=== PATIENT | female | born 1945 | race Caucasian/White ===

== ENCOUNTER 2018-03-19 00:06 | Emergency (ER) | payer MEDICARE, BC ==
[~2018-03-19] VITALS: Ht 153.7 cm; Wt 73.0 kg
[~2018-03-19 00:06] MED LIST: ADVA115A; BETA0.054; DONE10TA7; FLUO10CA4; HYDR25TA5; LISI-515; MELO15TA20; MEMA1TAB; MEMA1TAB2; OMEP40CA2; PRAM1TAB; PRAV20TA2; PRIM50TA5
[2018-03-19 00:10] VITALS: PULSE 67; RESP 16; TEMP 98.6; O2SAT 95
[2018-03-19] MEDS ORDERED: ACETAMINOPHEN 325 MG TAB PO ONE (00:30)
--- NOTE | 2018-03-19 00:37 | PD ---
HPI Chief Complaint: Fall Time Seen by Provider: 00:24 Travel History International Travel<30 days: No Contact w/Intl Traveler<30days: No Traveled to known affect area: No History of Present Illness HPI The patient is a 72-year-old female who presents to the emergency department for a head injury and knee injury after falling out of bed. The patient fell out of bed which is approximately 3 feet off the ground according to the . The patient landed on a tile floor. The patient was noted to have a large hematoma to the right occipital area as well as bruising of the anterior aspect of the right knee. The patient was able to ambulate on the right leg, but does complain of tenderness just inferior to the knee where the bruise is located. The patient denies taking any anticoagulants or blood thinners including aspirin, warfarin, Coumadin, Eliquis, Xarelto, and Pradaxa. The patient denies any neck pain, difficulty with vision, chest pain, shortness breath, nausea, vomiting, or abdominal pain. Symptoms are moderate. The patient does have a history of Parkinson's disease according to the . PFSH Past Medical History Asthma: Yes Depression: Yes Cancer: No Cardiovascular Problems: No High Cholesterol: Yes Diabetes: No Diminished Hearing: No Endocrine: No Gastrointestinal Disorders: Yes (GERD, HIATAL HERNIA) Genitourinary: No Hepatitis: No Hiatal Hernia: Yes Hypertension: Yes Immune Disorder: No Musculoskeletal: Yes (NECK/ BACK DISC ISSUES) Neurologic: Yes (VERTIGO, EXCESSIVE SPINAL FLUID; DIFFICULTY FINDING WORDS) Psychiatric: Yes (MEMORY PROBLEMS; DIFFICULTY FIND WORDS ) Respiratory: Yes (COPD, ASTHMA, SLEEP APNEA USES CPAP) Thyroid Disease: No ?: Not : 4 Para: 3 Miscarriage: 1 Past Surgical History Abdominal Surgery: Yes (LAP. ELENA) AICD: No Body Medical Devices: NONE Cardiac Surgery: No Ear Surgery: No Endocrine Surgery: No Eye Surgery: Yes (ADY CATARACTS REM'D) Genitourinary Surgery: No Gynecologic Surgery: Yes (HYSTERECTOMY) Hysterectomy: Yes Joint Replacement: No Oral Surgery: No Pacemaker: No Thoracic Surgery: No Other Surgery: Yes Social History Alcohol Use: No (DENIES) Tobacco Use: No (QUIT 1993) Substance Use: No Allergies-Medications (Allergen,Severity, Reaction): Coded Allergies: No Known Allergies (Unverified , 03/19/18) Reported Meds & Prescriptions Reported Meds & Active Scripts Active Reported Multi-Vitamin Daily (Multivitamin) 1 Each Tablet 1 Tab PO DAILY Omeprazole 40 Mg Cap 40 Mg DAILY Memantine 10 Mg Tab 10 Mg PO DAILY Lisinopril 20 Mg Tab 20 Mg PO DAILY Hydrochlorothiazide 25 Mg Tab 25 Mg PO DAILY Fluoxetine (Pmdd) 10 Mg Cap 10 Mg PO DAILY Donepezil 10 Mg Tab 10 Mg PO HS Review of Systems Except as stated in HPI: all other systems reviewed are Neg Eyes: No: Blurred Vision, Visual changes HENT: Positive: Headaches, No: Neck Pain Cardiovascular: No: Chest Pain or Discomfort Respiratory: No: Shortness of Breath Gastrointestinal: No: Nausea, Vomiting, Abdominal Pain Musculoskeletal: Positive: Edema, Pain Neurologic: Positive: Headache, No: Focal Abnormalities, Change in Mentation Physical Exam Narrative GENERAL: Awake, alert, pleasant 72-year-old female who appears her stated age and is in no acute respiratory distress. SKIN: Focused skin assessment warm/dry. HEAD: Hematoma noted to the right occipital area. No visible abrasion, laceration, or bleeding. EYES: Pupils equal and round. 3 mm bilateral and reactive. Drainage. ENT: No nasal bleeding or discharge. Mucous membranes pink and moist. NECK: Trachea midline. No JVD. No tenderness of the cervical vertebrae. CARDIOVASCULAR: Regular rate and rhythm. No murmur appreciated. RESPIRATORY: No accessory muscle use. Clear to auscultation. Breath sounds equal bilaterally. GASTROINTESTINAL: Abdomen soft, non-tender, nondistended. Back: No tenderness over the thoracic or lumbar vertebrae. Resting tremor right hand. MUSCULOSKELETAL: Ecchymosis noted just inferior to the right patella with mild tenderness. The patient is able to fully flex the hip, knee, and ankle on the right side. Positive distal pulses. NEUROLOGICAL: Awake and alert. No obvious cranial nerve deficits. Motor grossly within normal limits. Normal speech. PSYCHIATRIC: Appropriate mood and affect; insight and judgment normal. Data Data Last Documented VS Vital Signs Date Time Temp Pulse Resp B/P (MAP) Pulse Ox O2 Delivery O2 Flow Rate FiO2 03/19/18 00:10 98.6 [address] Brain W/O Iv Contrast(Rout) (03/19/18 ) Knee, Complete (4vws) (03/19/18 ) Acetaminophen (Tylenol) (03/19/18 00:30) MDM Medical Decision Making Medical Screen Exam Complete: Yes Emergency Medical Condition: Yes Medical Record Reviewed: Yes Interpretation(s) CT of the brain reveals no acute hemorrhage or mass-effect. Soft tissue swelling over the right parietal bone with no evidence of fracture. Ventricular shunt catheter in place with the tip in the third ventricle. X-ray of the right knee reveals negative trauma CT Differential Diagnosis Differential diagnosis includes closed head injury, skull fracture, intracranial hemorrhage, subdural hemorrhage, subarachnoid hemorrhage, tibial plateau fracture, knee contusion, fracture, dislocation. Narrative Course CT of the brain was obtained. X-ray of the right knee was obtained. The patient was administered Tylenol 650 mg orally for pain. CT of the brain reveals soft tissue swelling but no intracranial hemorrhage. METHODS TIME ANALYST shunt is in place. X-ray of the right knee is unremarkable. The patient be discharged home , is advised to apply ice to the hematoma on the head as well as the right knee. She will be provided a copy of her radiology results at discharge. She is advised to follow-up with her primary physician. Diagnosis Primary Impression: Closed head injury Qualified Codes: S09.90XA - Unspecified injury of head, initial encounter Additional Impressions: Hematoma Contusion of right knee Qualified Codes: S80.01XA - Contusion of right knee, initial encounter Patient Instructions: General Instructions Additional Instructions: Tylenol and/or ibuprofen as needed for pain. Please provide the patient a copy of her CT results and x-ray results at discharge. Follow-up with your primary physician. Apply ice to the right knee and right parietal hematoma. Med/Other Pt SpecificInfo: No Change to Meds Disposition: 01 DISCHARGE HOME Condition: Stable Oscar Victoria MD March 19, 2018 00:37
[2018-03-19] MEDS ORDERED: MEMA1TAB2 PO (00:57)
[2018-03-19] MEDS ORDERED: FLUO10CA4 PO (00:57)
[2018-03-19] MEDS ORDERED: HYDR25TA5 PO (00:57)
[2018-03-19] MEDS ORDERED: OMEP40CA2 (00:57)
[2018-03-19] MEDS ORDERED: LISI-515 PO (00:57)
[2018-03-19] MEDS ORDERED: DONE10TA7 PO (00:57)
[2018-03-19] MEDS ORDERED: MULT1TAB46 PO (00:59)
--- NOTE | 2018-03-19 01:28 | RADRPT ---
EXAM DATE: 03/19/2018 1:19 AM EDT AGE/SEX: 72 years / Female INDICATIONS: Right knee pain after fall out of bed. CLINICAL DATA: This is the patient's initial encounter. Patient reports that signs and symptoms have been present for 1 day and indicates a pain score of 5/10. MEDICAL/SURGICAL HISTORY: . Parkinsons. None. COMPARISON: No prior [facility] exams available for comparison. FINDINGS: Multiple views of the right knee were obtained and demonstrate no acute fracture or malalignment. The re are mild degenerative changes with sclerosis and slight spurring in the patellofemoral joint. Ther e is mild osteopenia. The soft tissues are unremarkable. Joints are intact without dislocation or si gnificant arthropathy. Osseous density is normal. Soft tissues are unremarkable. No radiopaque for eign bodies seen. CONCLUSION: Negative trauma study. Electronically signed by: Gilbert Pope MD 03/19/2018 1:27 AM EDT
--- NOTE | 2018-03-19 01:40 | RADRPT ---
EXAM DATE: 03/19/2018 1:31 AM EDT AGE/SEX: 72 years / Female INDICATIONS: Trauma. Fall. CLINICAL DATA: This is the patient's initial encounter. Patient reports that signs and symptoms have been present for 1 day and indicates a pain score of 8/10. MEDICAL/SURGICAL HISTORY: . Parkinson's. Dementia. . Cranial shunt. RADIATION DOSE: 56.03 CTDI (mGy) COMPARISON: No prior [facility] exams available for comparison. TECHNIQUE: CT of the head without contrast. Using automated exposure control and adjustment of the mA and/or kV according to patient size, radiation dose was kept as low as reasonably achievable to ob tain optimal diagnostic quality images. FINDINGS: Cerebrum: A ventricular peritoneal shunt catheter is present via a right frontal approach. Tip is in the region of the third ventricle. There is mild to moderate atrophic change with sulcal and ventric ular prominence. Mild. Ventricular white matter lucencies are noted characteristic of chronic small v essel ischemic change. No evidence of midline shift, mass lesion, hemorrhage or acute infarction. No extraaxial fluid collections are seen. Posterior Fossa: The cerebellum and brainstem are intact. The 4th ventricle is midline. The cerebe llopontine angle is unremarkable. Extracranial: The visualized portion of the orbits is intact. Skull: The calvaria is intact. No evidence of skull fracture. There is soft tissue swelling over th e right parietal bone. CONCLUSION: 1. No acute hemorrhage or mass effect. 2. Soft tissue swelling over the right parietal bone with no evidence of fracture. 3. Ventricular shunt catheter in place with the tip in the third ventricle. Electronically signed by: Gilbert Pope MD 03/19/2018 1:38 AM EDT
[2018-03-19 01:59] VITALS: BP 148/76; TEMP 97.9
== END 2018-03-19 02:00 | disposition home or self-care (01) ==
LOC: PHED 00:06
DX: S09.90XA Unspecified injury of head, initial encounter (principal); S00.83XA Contusion of other part of head, initial encounter; S80.01XA Contusion of right knee, initial encounter; W06.XXXA Fall from bed, initial encounter; G20 Parkinson's disease; I10 Essential (primary) hypertension; E78.00 Pure hypercholesterolemia, unspecified; K21.9 Gastro-esophageal reflux disease without esophagitis; F32.9 Major depressive disorder, single episode, unspecified; Z87.09 Personal history of other diseases of the respiratory system; Z87.19 Personal history of other diseases of the digestive system; Z87.39 Personal history of other diseases of the musculoskeletal system and connective tissue; Z86.69 Personal history of other diseases of the nervous system and sense organs
CPT/HCPCS: 70450; 73564; 99284